=== PATIENT | male | born 1995 | race Caucasian/White ===

== ENCOUNTER 2020-03-09 21:23 | Emergency (ER) | payer OTHER, SELFPAY ==
--- NOTE | ~2020-03-09 | XR_ITS ---
EXAMINATION: XR ankle LT min 3V DATE: 03/09/2020 22:42 INDICATION: Lateral left ankle pain and swelling. Injury. TECHNIQUE: 4 views of left ankle were obtained. COMPARISON: None. FINDINGS: Bone alignment is normal. No fracture. Joint spaces are well maintained. There is ankle sof t tissue swelling, lateral worse than medial. IMPRESSION: 1. No fracture. Reviewed, dictated and finalized at location A. IMPRESSION: 1. No fracture.
[2020-03-09 22:21] VITALS: BP 152/82; PULSE 74; RESP 20; TEMP 36.6; O2SAT 97
--- NOTE | 2020-03-09 23:46 | ED_ITS ---
HPI - Extremity Injury (Lower) General Chief Complaint: Extremity Injury, Lower Stated Complaint: left ankle injury Time Seen by Provider: 03/09/20 23:40 Source: patient Mode of arrival: ambulatory Limitations: no limitations History of Present Illness HPI Narrative: 24-year-old male Twisted his left ankle playing basketball tonight about 4 hours ago Has been able to bear some weight and did ice it but continued to swell so he came in to get checked No other injury Injury: Left: ankle Type of Injury: inversion Related Data Home Medications Medication Instructions Recorded Confirmed No Home Medications 03/09/20 Allergies Allergy/AdvReac Type Severity Reaction Status Date / Time No Known Allergies Allergy Verified 03/09/20 22:30 Review of Systems Musculoskeletal: Musculoskeletal: Reports no additional musculoskeletal complaints, Reports arthralgias and Reports joint swelling Neurologic: Denies focal weakness and Denies numbness Exam 2 Const: General: healthy appearing, no acute distress and alert Orientation/consciousness: patient oriented x3 HENMT: Head: normal to inspection Eyes: Conjunctivae: conjunctivae normal Resp: Effort & Inspection: normal respiratory effort Skin: General skin exam: normal color Neuro: General: patient oriented x3 Speech: Abnormal speech present Extrem: Other: Left ankle is moderately swollen laterally there is no tenderness over the base of the fifth metatarsal there is some mild tenderness over the distal fibula posteriorly there is moderate tenderness anteriorly over the talofibular ligaments neurovascular is intact Course Vital Signs Vital signs: Vital Signs Temperature 36.6 C 03/09/20 22:21 Pulse Rate 74 03/09/20 22:21 Respiratory Rate 20 03/09/20 22:21 Blood Pressure 152/82 H 03/09/20 22:21 Pulse Oximetry 97 03/09/20 22:21 Temperature 36.6 C 03/09/20 22:21 Pulse Rate 74 03/09/20 22:21 Respiratory Rate 20 03/09/20 22:21 Blood Pressure 152/82 H 03/09/20 22:21 Pulse Oximetry 97 03/09/20 22:21 MDM - Extremity Injury (Lower) MDM Narrative Medical decision making narrative: Reviewed sprain care and rehab with patient Imaging Data Radiologist's impression: ITS Impressions Ankle X-Ray 03/09/20 22:44 IMPRESSION: 1. No fracture. Discharge Plan Discharge Clinical Impression: Ankle sprain and strain Patient Disposition: Home, Self-Care Condition: Stable Instructions: Ankle Sprain (ED) Additional Instructions: Elevate as much as possible, ice using ice plus water in a Ziploc bag for 15 or 20 minutes at a time for the first day after that he does okay, Tylenol for pain, progressive ambulation to light jogging to running and cutting over the next 2 or 3 weeks, use a lace up ankle brace for sports for the next 3 or 4 months after return to help prevent reinjury Prescriptions: No Action No Home Medications RF: 0 Follow-up/Referrals: PHYSICIAN NOT ON STAFF,NONSTAFF [Primary Care Provider] - Clarence Veliz MD [Physician] - (Orthopedic follow-up if needed)
== END 2020-03-10 00:20 | disposition home or self-care (01) ==
PROVIDERS: Emergency Provider Emergency Medicine
DX: S93.402A Sprain of unspecified ligament of left ankle, initial encounter (principal); S96.912A Strain of unspecified muscle and tendon at ankle and foot level, left foot, initial encounter; X50.9XXA Other and unspecified overexertion or strenuous movements or postures, initial encounter; Y93.67 Activity, basketball
CPT/HCPCS: 73610; 99283